=== PATIENT | female | born 1985 | race Asian ===

== ENCOUNTER → 2018-12-07 | Outpatient (REF) | payer OTHER ==
[2018-12-07 14:23] LABS: BASO % 0.4 % (0.0-1.0); EOS # 0.1 10^3/uL (0.0-0.5); EOS % 1.4 % (0.0-3.0); HEMATOCRIT 37.4 % (36.0-47.0); HEMOGLOBIN 12.5 g/dl (12.0-15.5); LYMPH # 1.7 10^3/uL (1.5-5.0); LYMPH % 22.7 % (24.0-44.0); MEAN CORPUSCULAR HEMOGLOBIN 30.6 pg (27.0-33.0); MEAN CORPUSCULAR HGB CONC 33.4 g/dl (32.0-36.5); MEAN CORPUSCULAR VOLUME 91.7 fl (80.0-96.0); MONO # 0.3 10^3/uL (0.0-0.8); MONO % 4.2 % (0.0-5.0); NEUTROPHILS # 5.2 10^3/uL (1.5-8.5); PLATELET COUNT, AUTOMATED 299 10^3/uL (150-450); RED BLOOD COUNT 4.08 10^6/uL (4.00-5.40); WHITE BLOOD COUNT 7.4 10^3/uL (4.0-10.0)
[2018-12-07 16:47] LABS: CHLAMYDIA DNA AMPLIFICATION NEGATIVE (NEGATIVE); GC DNA AMPLIFICATION NEGATIVE (NEGATIVE)
[2018-12-08 15:08] LABS: HEPATITIS C VIRUS ABY INDEX 0.1 INDEX (<0.8); HIV 1&2 SCREEN CENTAUR NEGATIVE (NEGATIVE); RUBELLA IgG QUALITATIVE IMMUNE (IMMUNE)
== END ==
LOC: M LABNEURO 08:11
PROVIDERS: ATTEND Advanced Practice Midwife
DX: Z34.81 Encounter for supervision of other normal pregnancy, first trimester (principal); Z3A.01 Less than 8 weeks gestation of pregnancy

== ENCOUNTER 2018-12-22 14:27 | Day surgery (SDC) | payer OTHER ==
[~2018-12-22] VITALS: Ht 152.4 cm; Wt 53.4 kg
[~2018-12-22 14:27] MED LIST: DOXYCYCLINE HYCLATE 100 MG in D5W MINI-BAG PLUS 100 ML IV ONE; LIDOCAINE 1% MDV 20ML VIAL SQ PRN; LR 1,000 ML IV ONE
[2018-12-22 15:13] LABS: HEMATOCRIT 37.3 % (36.0-47.0); HEMOGLOBIN 12.5 g/dl (12.0-15.5); MEAN CORPUSCULAR HEMOGLOBIN 29.7 pg (27.0-33.0); MEAN CORPUSCULAR HGB CONC 33.5 g/dl (32.0-36.5); MEAN CORPUSCULAR VOLUME 88.6 fl (80.0-96.0); PLATELET COUNT, AUTOMATED 300 10^3/uL (150-450); RED BLOOD COUNT 4.21 10^6/uL (4.00-5.40); WHITE BLOOD COUNT 7.3 10^3/uL (4.0-10.0)
[2018-12-22] MEDS ORDERED: SILVER NITRATE APPLICATOR As Ordered ONE (16:15)
[2018-12-22] MEDS ORDERED: fentaNYL 100 MCG/2 ML INJECTION (J3010) As Ordered ONE ×2 (16:51→17:58)
[2018-12-22] MEDS ORDERED: KETOROLAC 60 MG/2 ML VIAL (J1885) As Ordered ONE (16:51)
[2018-12-22] MEDS ORDERED: LIDOCAINE 2% INJ 100 MG/5 ML SDV (FOR ANES.) As Ordered ONE (16:51)
[2018-12-22] MEDS ORDERED: ONDANSETRON 4MG/2ML VIAL (J2405) As Ordered ONE (16:51)
[2018-12-22] MEDS ORDERED: MIDAZOLAM INJ 2 MG/2 ML VIAL (J2250) As Ordered ONE (16:51)
[2018-12-22] MEDS ORDERED: dexameTHASONE 4 MG/ML 1ML VIAL (J1100) As Ordered ONE (16:51)
[2018-12-22] MEDS ORDERED: PROPOFOL 200 MG/20 ML VIAL As Ordered ONE (16:51)
[2018-12-22] MEDS ORDERED: LR 1,000 ML IV SCH ×2 (17:45→18:30)
[2018-12-22] MEDS: fentaNYL 100 MCG/2 ML INJECTION (J3010) IV PRN ×4 (17:55→18:11)
[2018-12-22] MEDS ORDERED: PERCOCET 5MG/325MG TAB As Ordered ONE (17:58)
[2018-12-22] MEDS ORDERED: DOXYCYCLINE HYCLATE 100 MG TAB PO ONE (18:00)
[2018-12-22] MEDS ORDERED: HYDROMORPHONE HCL 0.5 MG/ 0.5 ML SYRINGE (J1170 PER 1) IV PRN (18:30)
[2018-12-22] MEDS ORDERED: ONDANSETRON 4MG/2ML VIAL (J2405) IV PRN (18:30)
[2018-12-22] MEDS ORDERED: PERCOCET 5MG/325MG TAB PO PRN (18:30)
[2018-12-22 19:30] VITALS: BP 123/85
--- NOTE | 2018-12-23 11:47 | RO ---
DATE OF PROCEDURE: 12/22/2018 PREOPERATIVE DIAGNOSIS: Missed , first trimester. POSTOPERATIVE DIAGNOSIS: Missed , first trimester. PROCEDURE PERFORMED: Suction dilation and curettage. SURGEON: Dr. Arnulfo Dawson STAFF GENETIC COUNSELOR: None. ANESTHESIA: General via laryngeal mask anesthesia (LMA). SPECIMENS TO PATHOLOGY: Products of conception. ESTIMATED BLOOD LOSS: 100 mL. FLUIDS REPLACED : 700 mL lactated Ringer's. DRAINS: In-and-out catheter 1 mL urine output. COMPLICATIONS: None. PREOPERATIVE ANTIBIOTICS: Doxycycline 100 mg IV times one. INTRAOPERATIVE FINDINGS: Uterus sounded to 8 cm. Tissue obtained was grossly consistent with products of conception. INDICATION: The patient is a 33-year-old G 8, P7-0-1-7 who recently diagnosed with first trimester miscarriage at approximately 8 weeks gestation. The patient was counseled on expectant medical or surgical management. She has elected to proceed with surgical management via suction dilation and curettage. DESCRIPTION OF PROCEDURE: The patient was counseled and consented on the risks, benefits, indications, alternatives of the procedure. Informed consent was obtained. She was taken to the operating room with an IV running placed on operating table in dorsal supine position where general anesthesia was administered and airway secured without any difficulty. She was then placed in high lithotomy position. She was prepared and draped in normal sterile fashion and a time-out was performed per protocol. The bladder was drained with a sterile in-and-out catheter. Sterile speculum was placed good visualization of the cervix. The anterior lip of the cervix was grasped with a single-tooth tenaculum. The cervix was friable and large. The tenaculum tore through the tissue. A ring forceps was used to gain traction instead. The cervix was then sequentially dilated with Duane dilators up to #20. A size 9 vacurette was placed transcervical into the intrauterine cavity and suction was applied. Multiple passes of the vacurette were performed until minimal tissue and blood return. After minimal tissue and blood return the vacurette was removed. The sharp curette was placed transcervical into the intrauterine cavity. Intrauterine curettage was performed throughout the cavity until gritty texture was noted throughout. The curet was removed. Additional passes of the vacurette were performed with minimal tissue and blood return. The ring forceps was taken off the anterior lip of the cervix. The anterior lip of the cervix had a small laceration that was sutured with 0 Vicryl with a [id number] stitch. Excellent hemostasis was achieved. There was minimal bleeding from the cervical os. The sponge, lap, needle and sponge counts were correct per protocol. All instruments were removed from vagina and the patient tolerated the entire procedure very well. She was transferred back in good stable condition. OPERATIVE NOTE Dr. Ralph FARR for system J illness is for away. Excellent K you and the medical record [id number] to three. Thank you MTDSylwia
== END 2018-12-22 19:36 | disposition home or self-care (01) ==
LOC: M SDC 14:27
PROVIDERS: ATTEND Obstetrics & Gynecology
DX: O02.1 Missed abortion (principal)
CPT/HCPCS: 36415; 59820; 85027; 86850; 86900; 86901; 88305; J1100; J1885; J2250; J2405; J3010

== ENCOUNTER → 2019-01-05 | Outpatient (REF) | payer OTHER | LOC: M LABNEURO 09:02 | PROVIDERS: ATTEND Obstetrics & Gynecology | DX: O01.1 Incomplete and partial hydatidiform mole (principal) ==

== ENCOUNTER → 2019-01-06 | Outpatient (REF) | payer OTHER | LOC: M SFHCLERA 15:24 | PROVIDERS: ATTEND Nurse Practitioner Family | DX: N89.8 Other specified noninflammatory disorders of vagina (principal) | CPT/HCPCS: 81002; 81025; 87070; 87077; 87086; 87186; G0463 ==

== ENCOUNTER → 2019-01-10 | Outpatient (REF) | payer OTHER | LOC: M LABNEURO 08:58 | PROVIDERS: ATTEND Obstetrics & Gynecology | DX: O01.1 Incomplete and partial hydatidiform mole (principal) ==

== ENCOUNTER → 2019-01-19 | Outpatient (REF) | payer OTHER | LOC: M LABNEURO 09:18 | PROVIDERS: ATTEND Obstetrics & Gynecology | DX: O01.1 Incomplete and partial hydatidiform mole (principal) ==

== ENCOUNTER → 2019-02-13 | Outpatient (REF) | payer OTHER | LOC: M LABNEURO 10:43 | PROVIDERS: ATTEND Obstetrics & Gynecology | DX: O01.1 Incomplete and partial hydatidiform mole (principal) ==

== ENCOUNTER → 2019-03-16 | Outpatient (CLI) | payer OTHER | LOC: M PLALAB 10:59 | PROVIDERS: ATTEND Obstetrics & Gynecology | DX: O01.1 Incomplete and partial hydatidiform mole (principal) ==

== ENCOUNTER 2019-11-14 23:27 | Outpatient (CLI) | payer OTHER ==
[~2019-11-14] VITALS: Ht 152.4 cm; Wt 66.0 kg
== END 2019-11-15 03:35 | disposition home or self-care (01) ==
LOC: M LDO 23:27
PROVIDERS: ATTEND Advanced Practice Midwife
DX: O47.1 False labor at or after 37 completed weeks of gestation (principal); Z3A.37 37 weeks gestation of pregnancy
CPT/HCPCS: 59025; G0378; G0463

== ENCOUNTER 2019-12-01 09:55 | Inpatient (IN) | payer OTHER ==
[~2019-12-01] VITALS: Ht 152.4 cm; Wt 67.0 kg
[2019-12-01 10:45] LABS: HEMATOCRIT 38.4 % (36.0-47.0); HEMOGLOBIN 13.1 g/dl (12.0-15.5); MEAN CORPUSCULAR HEMOGLOBIN 30.6 pg (27.0-33.0); MEAN CORPUSCULAR HGB CONC 34.1 g/dl (32.0-36.5); MEAN CORPUSCULAR VOLUME 89.7 fl (80.0-96.0); PLATELET COUNT, AUTOMATED 232 10^3/uL (150-450); RED BLOOD COUNT 4.28 10^6/uL (4.00-5.40); WHITE BLOOD COUNT 9.1 10^3/uL (4.0-10.0)
[2019-12-01] MEDS ORDERED: FENTANYL 2MCG/ML ROPIVACAINE 0.2% IN 0.9% NACL 100ML IVBAG As Ordered ONE (11:27)
[2019-12-01 11:54] LABS: HEPATITIS B SURFACE ANTIGEN NEGATIVE (NEGATIVE)
[2019-12-01] MEDS ORDERED: REFRIGERATOR IV KEYS XX PRN (13:30)
[2019-12-01] MEDS ORDERED: LACTATED RINGER'S 1000 ML IV PRN (13:30)
[2019-12-01] MEDS ORDERED: FENTANYL/ROPIVACAINE/NACL BAG 100 ML EPIDURAL SCH (13:30)
[2019-12-01] MEDS ORDERED: EPIDURAL/PCA KEYS XX PRN (13:30)
[2019-12-01] MEDS ORDERED: ONDANSETRON 4MG/2ML VIAL IV PRN ×4 (13:30→21:15)
[2019-12-01] MEDS ORDERED: EPIDURAL COMMENT XX SCH (13:30)
[2019-12-01] MEDS ORDERED: OXYTOCIN DRIP 30 UNITS in IV 1 EA IV SCH ×2 (13:30→21:09)
[2019-12-01] MEDS ORDERED: NALOXONE INJ 0.4MG/1ML VIAL (J2310 PER 1MG) IV PRN ×3 (13:30→20:27)
[2019-12-01] MEDS ORDERED: LR 1,000 ML IV SCH ×2 (13:30→21:00)
[2019-12-01] MEDS ORDERED: ePHEDrine SULFATE 25 MG/5 ML(5MG/ML) SYRINGE IV PRN (13:30)
[2019-12-01] MEDS ORDERED: diphenhydrAMINE 50MG/ML VIAL (J1200) IV PRN ×2 (13:30→20:27)
[2019-12-01] MEDS ORDERED: BICITRA 30ML SOLN UDC As Ordered ONE (19:34)
[2019-12-01] MEDS ORDERED: ceFAZolin 2 GM/D5W 50 ML IV BAG (J0690 PER 500MG) As Ordered ONE (19:34)
[2019-12-01] MEDS ORDERED: BICITRA 30ML SOLN UDC PO ONE (19:45)
[2019-12-01] MEDS ORDERED: ceFAZolin SOD 2 GM in IV 1 EA IV ONE (19:45)
[2019-12-01] MEDS ORDERED: LIDOCAINE 1% MDV 50ML VIAL As Ordered ONE (20:16)
[2019-12-01] MEDS ORDERED: LIDOCAINE 2% W/EPINEPHRINE 20ML VIAL **PRES FREE As Ordered ONE (20:24)
[2019-12-01] MEDS ORDERED: OXYTOCIN INJ 10 UNITS/ML VIAL (J2590) As Ordered ONE (20:24)
[2019-12-01] MEDS ORDERED: MORPHINE PRES-FREE INJ 10 MG/10 ML VIAL (J2274) As Ordered ONE (20:25)
[2019-12-01] MEDS ORDERED: NALBUPHINE HCL 10 MG/ML AMP (J2300) IV PRN (20:27)
[2019-12-01] MEDS ORDERED: fentaNYL 100 MCG/2 ML INJECTION (J3010) As Ordered ONE (20:27)
[2019-12-01] MEDS ORDERED: METOCLOPRAMIDE INJ 10MG/2ML VIAL (J2765 PER 1) IV PRN ×2 (20:27→21:00)
[2019-12-01] MEDS ORDERED: KETOROLAC 60MG 2ML VIAL As Ordered ONE (20:32)
[2019-12-01 20:51] LABS: CORD GAS ABE V -7.7; CORD GAS HCO3 V 20.3 MEQ/L; CORD GAS O2 SAT V 71.9 %; CORD GAS PCO2 V 50.8 mmHg; CORD GAS PH V 7.22 UNITS; CORD GAS PO2 V 36.1 mmHg; CORD GAS SBC V 17.7 MEQ/L; CORD GAS TCO2 V 21.9 MEQ/L
[2019-12-01] MEDS ORDERED: KETOROLAC 30 MG/ML 1ML VIAL IV PRN (21:00)
[2019-12-01] MEDS ORDERED: fentaNYL 100 MCG/2 ML INJECTION (J3010) IV PRN (21:00)
[2019-12-01] MEDS ORDERED: MEPERIDINE INJ 25 MG/ML VIAL (J2175) IV PRN (21:00)
[2019-12-01] MEDS ORDERED: PERCOCET 5MG/325MG TAB PO PRN ×2 (21:00→21:15)
[2019-12-01] MEDS ORDERED: OXYTOCIN 30 UNITS IN 0.9% NaCl 500ML IV BAG (J2590) As Ordered ONE (21:08)
[2019-12-01] MEDS: LR 1,000 ML IV SCH (21:09)
[2019-12-01] MEDS ORDERED: DOCUSATE SODIUM 100 MG CAP PO PRN (21:15)
[2019-12-01] MEDS ORDERED: MEASLES,MUMPS,RUBELLA VACCINE INJ (MMR-II) (90707) SC SCH (21:15)
[2019-12-01] MEDS ORDERED: RHOGAM 300 MCG (1500 IU) INJ (J2790) IM SCH (21:15)
[2019-12-01] MEDS ORDERED: PERCOCET 5MG/325MG TAB As Ordered ONE (22:14)
[2019-12-01] MEDS: PERCOCET 5MG/325MG TAB PO PRN (22:15)
[2019-12-01 22:30] VITALS: BP 120/67
[2019-12-01 23:00] VITALS: BP 109/65
[2019-12-01 23:30] VITALS: BP 114/55
[2019-12-02] VITALS (7 sets, daily range): BP systolic 102–133; BP diastolic 53–74
[2019-12-02] MEDS: LR 1,000 ML IV SCH ×2 (01:45→10:03)
[2019-12-02] MEDS: KETOROLAC 30 MG/ML 1ML VIAL IV SCH ×3 (03:00→15:19)
[2019-12-02] MEDS: PRENATAL VITAMINS CHEWABLE TABLET PO SCH (09:20)
[2019-12-02 09:48] LABS: HEMATOCRIT 27.2 % (36.0-47.0); MEAN CORPUSCULAR HEMOGLOBIN 30.4 pg (27.0-33.0); MEAN CORPUSCULAR HGB CONC 33.5 g/dl (32.0-36.5); PLATELET COUNT, AUTOMATED 161 10^3/uL (150-450); RED BLOOD COUNT 2.99 10^6/uL (4.00-5.40); WHITE BLOOD COUNT 12.9 10^3/uL (4.0-10.0)
[2019-12-02 10:05] LABS: HEMOGLOBIN 9.1 g/dl (12.0-15.5)
[2019-12-03] MEDS: IBUPROFEN 800 MG TAB PO SCH ×2 (00:12→06:46)
[2019-12-03 02:00] VITALS: BP 117/61
[2019-12-03 06:00] VITALS: BP 107/60
[2019-12-03] MEDS ORDERED: IBUP80TA PO (07:00)
[2019-12-03] MEDS ORDERED: INFLUENZA QUADRIVALENT PF VACCINE 0.5ML SYRINGE IM ONE (07:45)
[2019-12-03 08:00] VITALS: BP 107/60
[2019-12-03] MEDS: PRENATAL VITAMINS CHEWABLE TABLET PO SCH (08:05)
[2019-12-03 10:34] LABS: HIV 1&2 SCREEN CENTAUR NEGATIVE (NEGATIVE)
[2019-12-03] MEDS: PERCOCET 5MG/325MG TAB PO PRN (11:42)
--- NOTE | 2019-12-05 11:19 | RO ---
DATE OF OPERATION: 12/01/2019 PREOPERATIVE DIAGNOSIS: 40 weeks, arrest of descent. POSTOPERATIVE DIAGNOSIS: 40 weeks, arrest of descent. PROCEDURE: Primary low-transverse section. SURGEON: Lamin Nunn MD EPIC PRELUDE ANALYST: ANESTHESIA: Epidural. ESTIMATED BLOOD LOSS: 600 mL. URINE OUTPUT: 200 mL. FINDINGS: 3760 grams, 8 pounds, 5 ounce male , Apgars 7 and 9, left occiput posterior position, asynclitic and extended. Normal uterus, fallopian tubes, and ovaries. OPERATIVE SUMMARY: The patient was taken to the operating room where epidural anesthesia was found to be adequate. A Ordoñez catheter was already in place. A Pfannenstiel skin incision was made with the scalpel and carried through to the fascia. The fascia was nicked and extended. The fascia was resected off the rectus muscles. The peritoneal cavity was entered. A Mobius retractor was placed. Bladder flap was created. Curvilinear incision was made in the lower uterine segment until clear fluid was noted. This was extended manually. The infant was delivered in the vertex position without difficulty. The cord was doubly clamped and cut. The infant was handed off to the waiting nurses. The placenta was expressed. The uterus was closed with 0-Vicryl in a running locking fashion. A second imbricating layer of 0-Vicryl was placed. The peritoneum was closed with 2-0 Vicryl. The fascia was closed with 0-Vicryl in a running fashion. The deep layer was irrigated. The skin was closed with 4-0 Monocryl with subcuticular sutures. Sponge, instrument, and needle counts were correct. MTDD
--- NOTE | 2019-12-05 11:25 | HPE ---
DATE OF ADMISSION: 12/01/2019 HISTORY OF PRESENT ILLNESS: A 34-year-old, G10, P7, 0, 2, 7 female at 39 and 2/7 weeks gestation, who presents with regular contractions that increased in intensity over the last 2-3 hours. She denies bleeding or loss of fluid. She has had no complications. PAST OBSTETRICAL HISTORY: x7. PAST SURGICAL HISTORY: D and C x1. PAST MEDICAL HISTORY: Noncontributory. ALLERGIES: None. SOCIAL HISTORY: Patient is . She lives in [place]. She denies cigarettes, alcohol or drug use. FAMILY HISTORY: Noncontributory. PHYSICAL EXAMINATION: VITALS: Blood pressure 124/74, pulse 84. GENERAL: She was moderately uncomfortable. HEAD AND NECK: Normal. LUNGS: Clear. HEART: Regular rate and rhythm. ABDOMEN: Nontender, gravid, heart tones Category I. Contractions every 2-3 minutes. STERILE VAGINAL EXAM: 4 to 5 cm, 70%, -2, posterior soft vertex. EXTREMITIES: Nontender. LABORATORY DATA: Blood type A+. GBS negative. ASSESSMENT: A 34-year-old, G10, P7, female at 39 and 2/7 weeks gestation, who presents in active labor. PLAN: Patient was admitted on 12/01/2019. [facility]
--- NOTE | 2019-12-05 11:31 | DSES ---
DATE OF ADMISSION: 12/01/2019 DATE OF DISCHARGE: 12/03/2019 34-year-old, G10, P7 female at 39 weeks gestation presents in labor. She had regular contractions that increased in intensity. She was 4-5 cm on admission. She had a history of seven prior spontaneous vaginal deliveries. HOSPITAL COURSE: Patient was admitted on 12/01/2019. She made slow progress in labor. She received an epidural for anesthesia. She had assisted rupture of membranes. She did reach 10 cm after a surprising length of time. She began the second stage of labor and pushed for greater than an hour with no descent in the head. The vertex was diagnosed as being malpositioned. There were repetitive accelerations during the second stage of labor. Essentially entered a diagnosis of arrest of descent. The patient proceeded to section. On 12/01/2019, the patient underwent primary section for an 8 pound, 5 ounce male . There were no complications. Her postoperative course was unremarkable. She had adequate return of bladder and bowel function. Her postoperative hemoglobin was 9.1 g/dL. She was deemed stable for discharge on postoperative day #2. ADMISSION DIAGNOSIS: , term labor. DISCHARGE DIAGNOSIS: Delivered. PROCEDURE: Primary section. DISPOSITION: Patient will followup with Dr. Nunn in 2 weeks. Instructions were reviewed. CLARISA
== END 2019-12-03 12:35 | disposition home or self-care (01) | DRG 773 ==
LOC: M LDO 09:55 → M LDI 10:17 → M OBS 22:21
PROVIDERS: ADMIT Specialist; ATTEND Specialist
PROC: 10D00Z1 Extraction of Products of Conception, Low, Open Approach (ICD-10-PCS; principal; 2019-12-01 19:57)
DX: O32.4XX0 Maternal care for high head at term, not applicable or unspecified (principal); Z37.0 Single live birth; Z3A.39 39 weeks gestation of pregnancy